=== PATIENT | female | born 2000 | race Asian ===

== ENCOUNTER 2018-08-15 23:52 | Emergency (ER) | payer SELFPAY ==
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
== END 2018-08-16 03:10 | disposition home or self-care (01) ==
LOC: ER 23:52
DX: S10.93XA Contusion of unspecified part of neck, initial encounter (principal); S20.219A Contusion of unspecified front wall of thorax, initial encounter; V49.49XA Driver injured in collision with other motor vehicles in traffic accident, initial encounter; Y93.89 Activity, other specified; Y92.410 Unspecified street and highway as the place of occurrence of the external cause; Y99.8 Other external cause status
CPT/HCPCS: 70450-TC; 71045-TC; 72125-TC; 81025-TC